=== PATIENT | female | born 1960 | race Hispanic/Latino ===

== ENCOUNTER 2020-08-12 13:08 | Inpatient (IN) | payer OTHER ==
[~2020-08-12] VITALS: Ht 154.9 cm; Wt 115.8 kg
[2020-08-12] MEDS ORDERED: ETOMIDATE 2 MG/ML 10 ML INJ IV ONE (13:11)
[2020-08-12] MEDS ORDERED: VECURONIUM BROMIDE FOR INJ 20 MG VIAL ONE (13:11)
[2020-08-12] MEDS ORDERED: WATER STERILE 10 ML VIAL ONE (13:11)
[2020-08-12] MEDS ORDERED: SUCCINYLCHOLINE CHLORIDE 20 MG/ML 10ML VIAL ONE (13:11)
[2020-08-12] MEDS ORDERED: LISINOPRIL10 MG PO (13:47)
[2020-08-12] MEDS ORDERED: METFORMIN HCL500 M2 PO (13:47)
[2020-08-12] MEDS ORDERED: LEVOTHYROXINE75 MCG PO (13:47)
[2020-08-12] MEDS ORDERED: SODIUM CHLORIDE FLUSH 10 ML SYR INJ PRN (15:45)
[2020-08-12] MEDS ORDERED: ONDANSETRON HCL INJ 2MG/ML 2ML 2 MG/ML VIAL IV PRN (15:45)
[2020-08-12] MEDS ORDERED: CEFTRIAXONE SOD 1 GM VIAL IV ONE (15:45)
[2020-08-12] MEDS ORDERED: CEFTRIAXONE SOD 1 GM 50 ML IV ONE (16:17)
[2020-08-12] MEDS ORDERED: SODIUM CHLORIDE 0.9% 1000ML 1,000 ML ONE (16:18)
[2020-08-12] MEDS: SODIUM CHLORIDE 0.9% 1000ML 1,000 ML IV SCH (16:20)
[2020-08-12] MEDS ORDERED: IBUPROFEN 600 MG TAB PO NR (16:30)
[2020-08-12] MEDS: DEXAMETHASONE 4 MG TAB PO SCH (21:41)
[2020-08-12] MEDS: AZITHROMYCIN 500MG/NS 250 ML 250 ML IV SCH (21:41)
[2020-08-12] MEDS ORDERED: DEXAMETHASONE SOD PHOS INJ 4 MG/ML VIAL ONE (21:41)
[2020-08-12 22:40] VITALS: BP 102/76
[2020-08-12 23:13] VITALS: BP 102/76
[2020-08-12] MEDS ORDERED: VITAMIN B-121000 MCG PO (23:27)
[2020-08-12] MEDS ORDERED: VITAMIN C500 MG PO (23:27)
[2020-08-12] MEDS ORDERED: ATORVASTATIN CA10 MG PO (23:27)
[2020-08-12] MEDS ORDERED: VITAMIN D3250 MCG PO (23:27)
[2020-08-12] MEDS ORDERED: DEXTROSE 50% SYRINGE 50 ML IV PRN (23:30)
[2020-08-12] MEDS: INSULIN LISPRO 100 UNIT/1 ML 3ML VIAL SQ SCH (23:50)
[2020-08-12 23:52] VITALS: BP 136/86
[2020-08-13] VITALS (7 sets, daily range): BP systolic 115–138; BP diastolic 71–83
[2020-08-13] MEDS: SODIUM CHLORIDE 0.9% 1000ML 1,000 ML IV SCH (00:35)
[2020-08-13 07:09] LABS: HEMATOCRIT 40.3 % (34.2-44.1); HEMOGLOBIN 13.2 g/dL (12.0-16.0); LYMPHOCYTES # (AUTO) 0.4 (1.0-3.2); MEAN CORPUSCULAR HEMOGLOBIN 29.2 pg (28-32); MEAN CORPUSCULAR HGB CONC 32.8 g/dL (31-35); MEAN CORPUSCULAR VOLUME 89.2 fL (81-99); MONOCYTES # (AUTO) 0.1 (0.2-0.8); MONOCYTES % 4.3 % (4.4-11.3); NEUTROPHILS % 80.3 % (38.7-80.0); PLATELET COUNT 99 x10e3/uL (140-360); RED BLOOD COUNT 4.52 x10e6/uL (3.6-5.1); RED CELL DISTRIBUTION WIDTH 13.6 % (11.7-14.4)
[2020-08-13 07:36] LABS: ALANINE AMINOTRANSFERASE 62 IU/L (0-55); ALBUMIN 3.1 g/dL (3.5-5.0); ALKALINE PHOSPHATASE 91 IU/L (40-150); ANION GAP 15.7 mmol/L (8-16); BLOOD UREA NITROGEN 9 mg/dL (7-26); BUN/CREATININE RATIO 13 (6-25); CALCIUM 8.3 mg/dL (8.4-10.2); CARBON DIOXIDE 24 mmol/L (22-29); CHLORIDE 100 mmol/L (98-107); EST GLOMERULAR FILTRATION RATE > 60 ML/MIN (60-); GLUCOSE 390 mg/dL (74-118); POTASSIUM 3.7 mmol/L (3.5-5.1); SODIUM 136 mmol/L (136-145)
[2020-08-13 07:52] LABS: PLATELET ESTIMATE MODERATELY DECREASED
[2020-08-13 07:54] LABS: PLATELET MORPHOLOGY COMMENT NORMAL
[2020-08-13] MEDS: INSULIN LISPRO 100 UNIT/1 ML 3ML VIAL SQ SCH ×4 (08:30→21:53)
[2020-08-13] MEDS: LISINOPRIL 20 MG TAB PO SCH (09:14)
[2020-08-13] MEDS: DEXAMETHASONE 4 MG TAB PO SCH (09:14)
[2020-08-13] MEDS: METFORMIN HCL 500 MG TAB CR PO SCH ×2 (09:14→17:24)
[2020-08-13] MEDS: LEVOTHYROXINE SODIUM 75 MCG TAB PO SCH (09:15)
[2020-08-13] MEDS ORDERED: DEXTROSE 50% SYRINGE 50 ML IV PRN (15:00)
[2020-08-13] MEDS ORDERED: REMDESIVIR 200MG/NS 100ML 200 MG in SODIUM CHLORIDE 0.9% 100 ML 100 ML IV ONE (16:00)
[2020-08-13] MEDS ORDERED: ENOXAPARIN SOD INJ 40 MG/0.4 ML SYR SC SCH (17:00)
[2020-08-13] MEDS: FLUTICASONE PROPIONATE NASAL SPRAY NS SCH (17:23)
[2020-08-13] MEDS: ENOXAPARIN SOD INJ 40 MG/0.4 ML SYR SC SCH (17:24)
[2020-08-13] MEDS ORDERED: CEFTRIAXONE SOD 1 GM 50 ML IV SCH ×2 (18:00→20:00)
[2020-08-13] MEDS: GUAIFENESIN/CODEINE 10 ML CUP PO PRN (18:34)
[2020-08-13] MEDS: ACETAMINOPHEN 325 MG TAB PO PRN (21:51)
[2020-08-13] MEDS: AZITHROMYCIN 500MG/NS 250 ML 250 ML IV SCH (22:15)
[2020-08-14] VITALS (8 sets, daily range): BP systolic 119–156; BP diastolic 72–82
[2020-08-14] MEDS: ONDANSETRON HCL INJ 2MG/ML 2ML 2 MG/ML VIAL IV PRN ×3 (00:16→20:30)
[2020-08-14] MEDS: GUAIFENESIN/CODEINE 10 ML CUP PO PRN ×3 (03:15→21:53)
[2020-08-14] MEDS: ACETAMINOPHEN 325 MG TAB PO PRN ×3 (03:51→16:57)
[2020-08-14 06:04] LABS: EOSINOPHILS % 0.2 % (0.0-6.0); HEMATOCRIT 38.3 % (34.2-44.1); HEMOGLOBIN 13.1 g/dL (12.0-16.0); LYMPHOCYTES # (AUTO) 0.8 (1.0-3.2); MEAN CORPUSCULAR HEMOGLOBIN 29.4 pg (28-32); MEAN CORPUSCULAR HGB CONC 34.2 g/dL (31-35); MEAN CORPUSCULAR VOLUME 86.1 fL (81-99); MONOCYTES # (AUTO) 0.2 (0.2-0.8); MONOCYTES % 2.9 % (4.4-11.3); NEUTROPHILS # (AUTO) 4.5 (2.1-6.9); NEUTROPHILS % 81.5 % (38.7-80.0); PLATELET COUNT 120 x10e3/uL (140-360); RED BLOOD COUNT 4.45 x10e6/uL (3.6-5.1); RED CELL DISTRIBUTION WIDTH 13.3 % (11.7-14.4)
[2020-08-14 06:33] LABS: ALANINE AMINOTRANSFERASE 49 IU/L (0-55); ALBUMIN/GLOBULIN RATIO 0.9 (0.8-2.0); ALKALINE PHOSPHATASE 88 IU/L (40-150); ANION GAP 15.4 mmol/L (8-16); BLOOD UREA NITROGEN 11 mg/dL (7-26); BUN/CREATININE RATIO 17 (6-25); CALCIUM 8.5 mg/dL (8.4-10.2); CARBON DIOXIDE 23 mmol/L (22-29); CHLORIDE 103 mmol/L (98-107); CREATININE, SERUM 0.65 mg/dL (0.57-1.11); EST GLOMERULAR FILTRATION RATE > 60 ML/MIN (60-); GLUCOSE 180 mg/dL (74-118); POTASSIUM 3.4 mmol/L (3.5-5.1); SODIUM 138 mmol/L (136-145)
[2020-08-14] MEDS: LEVOTHYROXINE SODIUM 75 MCG TAB PO SCH (06:38)
[2020-08-14 06:45] LABS: THYROID STIMULATING HORMONE 0.208 uIU/mL (0.350-4.940)
[2020-08-14] MEDS: INSULIN LISPRO 100 UNIT/1 ML 3ML VIAL SQ SCH ×4 (08:30→21:04)
[2020-08-14] MEDS: GUAIFENESIN 600MG/DEXTROMETHORPHAN 30MG TABSR PO PRN ×2 (08:37→16:57)
[2020-08-14] MEDS: METFORMIN HCL 500 MG TAB CR PO SCH ×2 (08:37→16:56)
[2020-08-14] MEDS: LISINOPRIL 20 MG TAB PO SCH (08:37)
[2020-08-14] MEDS: FLUTICASONE PROPIONATE NASAL SPRAY NS SCH ×2 (08:37→16:56)
[2020-08-14] MEDS: DEXAMETHASONE 4 MG TAB PO SCH (08:37)
[2020-08-14] MEDS: REMDESIVIR 100MG/NS 100ML 100 MG IV SCH (13:00)
[2020-08-14] MEDS ORDERED: POTASSIUM CHLORIDE 10MEQ EA PO ONE (14:00)
[2020-08-14] MEDS ORDERED: IBUPROFEN 100 MG/5 ML SUSP PO PRN (14:15)
[2020-08-14] MEDS: IBUPROFEN 600 MG TAB PO PRN (15:05)
[2020-08-14] MEDS: ENOXAPARIN SOD INJ 40 MG/0.4 ML SYR SC SCH (16:56)
[2020-08-14] MEDS: HYDROCODONE/APAP 5MG-325MG TAB PO PRN (21:53)
[2020-08-15] VITALS (7 sets, daily range): BP systolic 105–152; BP diastolic 72–85
[2020-08-15] MEDS: LEVOTHYROXINE SODIUM 50 MCG TAB PO SCH (06:10)
[2020-08-15] MEDS: ACETAMINOPHEN 325 MG TAB PO PRN ×2 (06:11→21:57)
[2020-08-15 06:22] LABS: HEMATOCRIT 38.1 % (34.2-44.1); HEMOGLOBIN 12.8 g/dL (12.0-16.0); LYMPHOCYTES # (AUTO) 0.6 (1.0-3.2); LYMPHOCYTES % 12.9 % (18.0-39.1); MEAN CORPUSCULAR HEMOGLOBIN 29.3 pg (28-32); MEAN CORPUSCULAR HGB CONC 33.6 g/dL (31-35); MEAN CORPUSCULAR VOLUME 87.2 fL (81-99); MONOCYTES # (AUTO) 0.3 (0.2-0.8); MONOCYTES % 5.2 % (4.4-11.3); NEUTROPHILS # (AUTO) 4.1 (2.1-6.9); NEUTROPHILS % 81.5 % (38.7-80.0); PLATELET COUNT 142 x10e3/uL (140-360); RED BLOOD COUNT 4.37 x10e6/uL (3.6-5.1); RED CELL DISTRIBUTION WIDTH 13.6 % (11.7-14.4)
[2020-08-15 06:52] LABS: ALANINE AMINOTRANSFERASE 49 IU/L (0-55); ALBUMIN 2.9 g/dL (3.5-5.0); ALBUMIN/GLOBULIN RATIO 0.9 (0.8-2.0); ALKALINE PHOSPHATASE 82 IU/L (40-150); ANION GAP 12.5 mmol/L (8-16); BLOOD UREA NITROGEN 12 mg/dL (7-26); BUN/CREATININE RATIO 18 (6-25); CALCIUM 8.2 mg/dL (8.4-10.2); CARBON DIOXIDE 27 mmol/L (22-29); CHLORIDE 100 mmol/L (98-107); CREATININE, SERUM 0.68 mg/dL (0.57-1.11); EST GLOMERULAR FILTRATION RATE > 60 ML/MIN (60-); GLUCOSE 189 mg/dL (74-118); POTASSIUM 3.5 mmol/L (3.5-5.1); SODIUM 136 mmol/L (136-145)
[2020-08-15] MEDS: INSULIN LISPRO 100 UNIT/1 ML 3ML VIAL SQ SCH ×4 (07:30→21:57)
[2020-08-15] MEDS: DEXAMETHASONE 4 MG TAB PO SCH (09:30)
[2020-08-15] MEDS: METFORMIN HCL 500 MG TAB CR PO SCH ×2 (09:30→17:57)
[2020-08-15] MEDS: LISINOPRIL 20 MG TAB PO SCH (09:30)
[2020-08-15] MEDS: FLUTICASONE PROPIONATE NASAL SPRAY NS SCH ×2 (09:30→17:39)
[2020-08-15] MEDS: IBUPROFEN 600 MG TAB PO PRN ×2 (09:36→19:38)
[2020-08-15] MEDS: REMDESIVIR 100MG/NS 100ML 100 MG IV SCH (13:11)
[2020-08-15] MEDS: ENOXAPARIN SOD INJ 40 MG/0.4 ML SYR SC SCH (17:57)
[2020-08-15] MEDS: GUAIFENESIN 600MG/DEXTROMETHORPHAN 30MG TABSR PO PRN (19:20)
[2020-08-15] MEDS: ALBUTEROL SULFATE HFA 8GM INHALATION AEROSOL INH PRN (21:57)
[2020-08-16] VITALS (8 sets, daily range): BP systolic 134–170; BP diastolic 78–94
[2020-08-16] MEDS: ONDANSETRON HCL INJ 2MG/ML 2ML 2 MG/ML VIAL IV PRN (00:10)
[2020-08-16] MEDS: HYDROCODONE/APAP 5MG-325MG TAB PO PRN ×2 (00:28→17:00)
[2020-08-16] MEDS: LEVOTHYROXINE SODIUM 50 MCG TAB PO SCH (06:33)
[2020-08-16] MEDS: INSULIN LISPRO 100 UNIT/1 ML 3ML VIAL SQ SCH ×4 (07:30→20:52)
[2020-08-16] MEDS: FLUTICASONE PROPIONATE NASAL SPRAY NS SCH ×2 (09:11→17:31)
[2020-08-16] MEDS: METFORMIN HCL 500 MG TAB CR PO SCH ×2 (09:11→17:31)
[2020-08-16] MEDS: DEXAMETHASONE 4 MG TAB PO SCH (09:11)
[2020-08-16] MEDS: LISINOPRIL 20 MG TAB PO SCH (09:11)
[2020-08-16] MEDS: IBUPROFEN 600 MG TAB PO PRN (09:26)
[2020-08-16] MEDS: GUAIFENESIN/CODEINE 10 ML CUP PO PRN ×2 (09:32→09:33)
[2020-08-16] MEDS: REMDESIVIR 100MG/NS 100ML 100 MG IV SCH (14:14)
[2020-08-16] MEDS: ENOXAPARIN SOD INJ 40 MG/0.4 ML SYR SC SCH (17:31)
[2020-08-16] MEDS: ACETAMINOPHEN 325 MG TAB PO PRN (20:53)
[2020-08-17] VITALS (7 sets, daily range): BP systolic 143–174; BP diastolic 73–102
[2020-08-17] MEDS: LORAZEPAM INJ 2 MG/ML VIAL IV PRN (01:39)
[2020-08-17] MEDS: LEVOTHYROXINE SODIUM 50 MCG TAB PO SCH (04:58)
[2020-08-17] MEDS: ACETAMINOPHEN 325 MG TAB PO PRN (04:59)
[2020-08-17 05:28] LABS: BASOPHILS % 0.2 % (0.0-1.0); EOSINOPHILS % 0.2 % (0.0-6.0); HEMOGLOBIN 13.7 g/dL (12.0-16.0); LYMPHOCYTES # (AUTO) 0.9 (1.0-3.2); LYMPHOCYTES % 16.1 % (18.0-39.1); MEAN CORPUSCULAR HEMOGLOBIN 29.5 pg (28-32); MEAN CORPUSCULAR HGB CONC 33.4 g/dL (31-35); MEAN CORPUSCULAR VOLUME 88.2 fL (81-99); MONOCYTES # (AUTO) 0.2 (0.2-0.8); MONOCYTES % 4.4 % (4.4-11.3); NEUTROPHILS # (AUTO) 4.2 (2.1-6.9); NEUTROPHILS % 77.8 % (38.7-80.0); PLATELET COUNT 194 x10e3/uL (140-360); RED BLOOD COUNT 4.65 x10e6/uL (3.6-5.1); RED CELL DISTRIBUTION WIDTH 13.2 % (11.7-14.4)
[2020-08-17 05:47] LABS: ANION GAP 15.6 mmol/L (8-16); BLOOD UREA NITROGEN 11 mg/dL (7-26); BUN/CREATININE RATIO 18 (6-25); CALCIUM 8.2 mg/dL (8.4-10.2); CARBON DIOXIDE 26 mmol/L (22-29); CHLORIDE 99 mmol/L (98-107); CREATININE, SERUM 0.61 mg/dL (0.57-1.11); EST GLOMERULAR FILTRATION RATE > 60 ML/MIN (60-); GLUCOSE 150 mg/dL (74-118); POTASSIUM 3.6 mmol/L (3.5-5.1); SODIUM 137 mmol/L (136-145)
[2020-08-17] MEDS: INSULIN LISPRO 100 UNIT/1 ML 3ML VIAL SQ SCH ×4 (07:30→21:54)
[2020-08-17] MEDS: METFORMIN HCL 500 MG TAB CR PO SCH ×2 (08:00→17:28)
[2020-08-17] MEDS: LISINOPRIL 20 MG TAB PO SCH (08:59)
[2020-08-17] MEDS: FLUTICASONE PROPIONATE NASAL SPRAY NS SCH ×2 (08:59→17:28)
[2020-08-17] MEDS: DEXAMETHASONE 4 MG TAB PO SCH (08:59)
[2020-08-17] MEDS: HYDROCODONE/APAP 5MG-325MG TAB PO PRN ×3 (10:01→20:15)
[2020-08-17] MEDS: REMDESIVIR 100MG/NS 100ML 100 MG IV SCH (14:40)
[2020-08-17] MEDS: ENOXAPARIN SOD INJ 40 MG/0.4 ML SYR SC SCH (17:28)
[2020-08-17] MEDS: GUAIFENESIN/CODEINE 10 ML CUP PO PRN (20:03)
[2020-08-18] VITALS (7 sets, daily range): BP systolic 119–174; BP diastolic 64–94
[2020-08-18] MEDS: LORAZEPAM INJ 2 MG/ML VIAL IV PRN ×2 (01:37→23:48)
[2020-08-18] MEDS: GUAIFENESIN/CODEINE 10 ML CUP PO PRN ×2 (04:56→20:00)
[2020-08-18] MEDS: HYDROCODONE/APAP 5MG-325MG TAB PO PRN ×3 (04:56→20:00)
[2020-08-18] MEDS: LEVOTHYROXINE SODIUM 50 MCG TAB PO SCH (05:14)
[2020-08-18] MEDS: INSULIN LISPRO 100 UNIT/1 ML 3ML VIAL SQ SCH ×4 (07:30→21:00)
[2020-08-18] MEDS: DEXAMETHASONE 4 MG TAB PO SCH (09:15)
[2020-08-18] MEDS: LISINOPRIL 20 MG TAB PO SCH (09:15)
[2020-08-18] MEDS: METFORMIN HCL 500 MG TAB CR PO SCH ×2 (09:15→16:17)
[2020-08-18] MEDS: FLUTICASONE PROPIONATE NASAL SPRAY NS SCH ×2 (09:15→16:17)
[2020-08-18] MEDS: GUAIFENESIN 600MG/DEXTROMETHORPHAN 30MG TABSR PO PRN (09:16)
[2020-08-18] MEDS: ACETAMINOPHEN 325 MG TAB PO PRN (11:21)
[2020-08-18] MEDS: ENOXAPARIN SOD INJ 40 MG/0.4 ML SYR SC SCH (16:18)
[2020-08-19] VITALS (7 sets, daily range): BP systolic 137–154; BP diastolic 70–90
[2020-08-19] MEDS: GUAIFENESIN/CODEINE 10 ML CUP PO PRN ×2 (02:09→20:00)
[2020-08-19] MEDS: HYDROCODONE/APAP 5MG-325MG TAB PO PRN ×3 (02:10→20:00)
[2020-08-19] MEDS: LEVOTHYROXINE SODIUM 50 MCG TAB PO SCH (05:28)
[2020-08-19] MEDS: INSULIN LISPRO 100 UNIT/1 ML 3ML VIAL SQ SCH ×4 (08:10→21:00)
[2020-08-19] MEDS: FLUTICASONE PROPIONATE NASAL SPRAY NS SCH ×2 (09:17→16:49)
[2020-08-19] MEDS: LISINOPRIL 20 MG TAB PO SCH (09:17)
[2020-08-19] MEDS: DEXAMETHASONE 4 MG TAB PO SCH (09:17)
[2020-08-19] MEDS: METFORMIN HCL 500 MG TAB CR PO SCH ×2 (09:17→16:49)
[2020-08-19] MEDS: ACETAMINOPHEN 325 MG TAB PO PRN (09:18)
[2020-08-19] MEDS: ENOXAPARIN SOD INJ 40 MG/0.4 ML SYR SC SCH (16:49)
[2020-08-20] VITALS (8 sets, daily range): BP systolic 127–180; BP diastolic 70–97
[2020-08-20] MEDS: GUAIFENESIN/CODEINE 10 ML CUP PO PRN (01:10)
[2020-08-20] MEDS: HYDROCODONE/APAP 5MG-325MG TAB PO PRN ×4 (01:10→20:12)
[2020-08-20] MEDS: LEVOTHYROXINE SODIUM 50 MCG TAB PO SCH (06:27)
[2020-08-20] MEDS: INSULIN LISPRO 100 UNIT/1 ML 3ML VIAL SQ SCH ×4 (09:17→20:55)
[2020-08-20] MEDS: LISINOPRIL 20 MG TAB PO SCH (09:19)
[2020-08-20] MEDS: DEXAMETHASONE 4 MG TAB PO SCH (09:19)
[2020-08-20] MEDS: METFORMIN HCL 500 MG TAB CR PO SCH ×2 (09:19→16:33)
[2020-08-20] MEDS: FLUTICASONE PROPIONATE NASAL SPRAY NS SCH ×2 (09:31→16:33)
[2020-08-20] MEDS: HYDRALAZINE HCL 20 MG/ML VIAL IV PRN (20:28)
[2020-08-20] MEDS: IBUPROFEN 600 MG TAB PO PRN (22:36)
[2020-08-21] VITALS (9 sets, daily range): BP systolic 120–158; BP diastolic 49–118
[2020-08-21] MEDS: HYDROCODONE/APAP 5MG-325MG TAB PO PRN ×3 (00:06→12:56)
[2020-08-21 05:02] LABS: BASOPHILS % 0.1 % (0.0-1.0); EOSINOPHILS # (AUTO) 0.1 (0.0-0.4); EOSINOPHILS % 0.7 % (0.0-6.0); HEMATOCRIT 38.7 % (34.2-44.1); LYMPHOCYTES % 11.1 % (18.0-39.1); MEAN CORPUSCULAR HGB CONC 33.6 g/dL (31-35); MEAN CORPUSCULAR VOLUME 86.2 fL (81-99); MONOCYTES # (AUTO) 0.3 (0.2-0.8); MONOCYTES % 3.8 % (4.4-11.3); NEUTROPHILS # (AUTO) 7.2 (2.1-6.9); PLATELET COUNT 262 x10e3/uL (140-360); RED BLOOD COUNT 4.49 x10e6/uL (3.6-5.1); RED CELL DISTRIBUTION WIDTH 13.7 % (11.7-14.4)
[2020-08-21] MEDS: LEVOTHYROXINE SODIUM 50 MCG TAB PO SCH (05:20)
[2020-08-21] MEDS: GUAIFENESIN 600MG/DEXTROMETHORPHAN 30MG TABSR PO PRN ×2 (05:25→12:00)
[2020-08-21 05:26] LABS: ALANINE AMINOTRANSFERASE 37 IU/L (0-55); ALBUMIN 2.6 g/dL (3.5-5.0); ALBUMIN/GLOBULIN RATIO 0.7 (0.8-2.0); ALKALINE PHOSPHATASE 78 IU/L (40-150); ANION GAP 17.5 mmol/L (8-16); BLOOD UREA NITROGEN 9 mg/dL (7-26); BUN/CREATININE RATIO 15 (6-25); CALCIUM 8.3 mg/dL (8.4-10.2); CARBON DIOXIDE 24 mmol/L (22-29); CHLORIDE 99 mmol/L (98-107); EST GLOMERULAR FILTRATION RATE > 60 ML/MIN (60-); GLUCOSE 129 mg/dL (74-118); POTASSIUM 3.5 mmol/L (3.5-5.1); SODIUM 137 mmol/L (136-145)
[2020-08-21] MEDS: SALINE 0.65% NAS SOLN 1 SPRAY BTL PRN (06:30)
[2020-08-21] MEDS: METFORMIN HCL 500 MG TAB CR PO SCH ×2 (08:34→15:59)
[2020-08-21] MEDS: LISINOPRIL 20 MG TAB PO SCH (08:34)
[2020-08-21] MEDS: FLUTICASONE PROPIONATE NASAL SPRAY NS SCH ×2 (08:34→15:59)
[2020-08-21] MEDS: HYDRALAZINE HCL 20 MG/ML VIAL IV PRN (08:35)
[2020-08-21] MEDS: INSULIN LISPRO 100 UNIT/1 ML 3ML VIAL SQ SCH ×4 (08:43→20:46)
[2020-08-21] MEDS: OXYMETAZOLINE HCL 0.05% NAS 1 SPRAY BTL SCH ×2 (11:47→20:28)
[2020-08-21] MEDS: DEXAMETHASONE 4 MG TAB PO SCH (11:47)
[2020-08-21] MEDS: ENOXAPARIN SOD INJ 40 MG/0.4 ML SYR SC SCH (15:59)
[2020-08-21] MEDS: ACETAMINOPHEN 325 MG TAB PO PRN (20:48)
[2020-08-22] MEDS: IBUPROFEN 600 MG TAB PO PRN ×2 (01:01→20:12)
[2020-08-22] MEDS: GUAIFENESIN 600MG/DEXTROMETHORPHAN 30MG TABSR PO PRN ×2 (01:01→20:12)
[2020-08-22] MEDS: LORAZEPAM INJ 2 MG/ML VIAL IV PRN (04:16)
[2020-08-22] MEDS: LEVOTHYROXINE SODIUM 50 MCG TAB PO SCH (05:01)
[2020-08-22 05:28] VITALS: BP 154/77
[2020-08-22 07:48] VITALS: BP 154/77
[2020-08-22 08:00] VITALS: BP 143/65
[2020-08-22] MEDS: METFORMIN HCL 500 MG TAB CR PO SCH ×2 (08:59→18:03)
[2020-08-22] MEDS: DEXAMETHASONE 4 MG TAB PO SCH (09:00)
[2020-08-22] MEDS: OXYMETAZOLINE HCL 0.05% NAS 1 SPRAY BTL SCH ×2 (09:00→21:00)
[2020-08-22] MEDS: INSULIN LISPRO 100 UNIT/1 ML 3ML VIAL SQ SCH ×4 (09:00→21:00)
[2020-08-22] MEDS: LISINOPRIL 20 MG TAB PO SCH (09:01)
[2020-08-22] MEDS: FLUTICASONE PROPIONATE NASAL SPRAY NS SCH ×2 (09:01→18:03)
[2020-08-22 12:00] VITALS: BP 180/88
[2020-08-22 16:00] VITALS: BP 172/112
[2020-08-22] MEDS: ENOXAPARIN SOD INJ 40 MG/0.4 ML SYR SC SCH (18:03)
[2020-08-22] MEDS: HYDRALAZINE HCL 20 MG/ML VIAL IV PRN (18:04)
[2020-08-22 20:48] VITALS: BP 148/83
[2020-08-23] VITALS (8 sets, daily range): BP systolic 103–161; BP diastolic 70–97
[2020-08-23] MEDS: ACETAMINOPHEN 325 MG TAB PO PRN ×3 (00:16→20:00)
[2020-08-23] MEDS: LEVOTHYROXINE SODIUM 50 MCG TAB PO SCH (05:19)
[2020-08-23] MEDS: INSULIN LISPRO 100 UNIT/1 ML 3ML VIAL SQ SCH ×4 (07:30→20:27)
[2020-08-23] MEDS: OXYMETAZOLINE HCL 0.05% NAS 1 SPRAY BTL SCH ×2 (09:20→20:27)
[2020-08-23] MEDS: LISINOPRIL 20 MG TAB PO SCH (09:20)
[2020-08-23] MEDS: FLUTICASONE PROPIONATE NASAL SPRAY NS SCH ×2 (09:20→17:06)
[2020-08-23] MEDS: METFORMIN HCL 500 MG TAB CR PO SCH ×2 (09:20→17:06)
[2020-08-23] MEDS: IBUPROFEN 600 MG TAB PO PRN (13:08)
[2020-08-23] MEDS: ENOXAPARIN SOD INJ 40 MG/0.4 ML SYR SC SCH (17:07)
[2020-08-24] VITALS (8 sets, daily range): BP systolic 104–132; BP diastolic 62–84
[2020-08-24] MEDS: LORAZEPAM INJ 2 MG/ML VIAL IV PRN (01:20)
[2020-08-24] MEDS: LEVOTHYROXINE SODIUM 50 MCG TAB PO SCH (05:34)
[2020-08-24 06:08] LABS: BASOPHILS % 0.3 % (0.0-1.0); EOSINOPHILS # (AUTO) 0.1 (0.0-0.4); EOSINOPHILS % 1.7 % (0.0-6.0); HEMATOCRIT 41.2 % (34.2-44.1); HEMOGLOBIN 13.2 g/dL (12.0-16.0); LYMPHOCYTES % 14.1 % (18.0-39.1); MEAN CORPUSCULAR HEMOGLOBIN 29.3 pg (28-32); MEAN CORPUSCULAR VOLUME 91.4 fL (81-99); MONOCYTES # (AUTO) 0.4 (0.2-0.8); MONOCYTES % 5.2 % (4.4-11.3); NEUTROPHILS # (AUTO) 5.4 (2.1-6.9); NEUTROPHILS % 77.7 % (38.7-80.0); PLATELET COUNT 262 x10e3/uL (140-360); RED BLOOD COUNT 4.51 x10e6/uL (3.6-5.1); RED CELL DISTRIBUTION WIDTH 14.1 % (11.7-14.4)
[2020-08-24 07:16] LABS: ALANINE AMINOTRANSFERASE 59 IU/L (0-55); ALBUMIN 2.5 g/dL (3.5-5.0); ALBUMIN/GLOBULIN RATIO 0.7 (0.8-2.0); ALKALINE PHOSPHATASE 92 IU/L (40-150); ANION GAP 16.2 mmol/L (8-16); BLOOD UREA NITROGEN 9 mg/dL (7-26); BUN/CREATININE RATIO 13 (6-25); CALCIUM 8.2 mg/dL (8.4-10.2); CARBON DIOXIDE 26 mmol/L (22-29); CHLORIDE 101 mmol/L (98-107); CREATININE, SERUM 0.69 mg/dL (0.57-1.11); EST GLOMERULAR FILTRATION RATE > 60 ML/MIN (60-); GLUCOSE 114 mg/dL (74-118); POTASSIUM 4.2 mmol/L (3.5-5.1); SODIUM 139 mmol/L (136-145)
[2020-08-24] MEDS: INSULIN LISPRO 100 UNIT/1 ML 3ML VIAL SQ SCH ×4 (07:30→21:00)
[2020-08-24] MEDS: FLUTICASONE PROPIONATE NASAL SPRAY NS SCH ×2 (08:43→16:22)
[2020-08-24] MEDS: METFORMIN HCL 500 MG TAB CR PO SCH ×2 (08:43→16:22)
[2020-08-24] MEDS: OXYMETAZOLINE HCL 0.05% NAS 1 SPRAY BTL SCH (08:43)
[2020-08-24] MEDS: LISINOPRIL 20 MG TAB PO SCH (08:44)
[2020-08-24] MEDS: ENOXAPARIN SOD INJ 40 MG/0.4 ML SYR SC SCH (16:22)
[2020-08-24] MEDS: GUAIFENESIN 600MG/DEXTROMETHORPHAN 30MG TABSR PO PRN (21:05)
[2020-08-25] VITALS (7 sets, daily range): BP systolic 104–124; BP diastolic 60–83
[2020-08-25] MEDS: IBUPROFEN 600 MG TAB PO PRN ×2 (01:40→10:52)
[2020-08-25] MEDS: LEVOTHYROXINE SODIUM 50 MCG TAB PO SCH (06:08)
[2020-08-25] MEDS: INSULIN LISPRO 100 UNIT/1 ML 3ML VIAL SQ SCH ×4 (07:30→20:18)
[2020-08-25] MEDS: ACETAMINOPHEN 325 MG TAB PO PRN (08:24)
[2020-08-25] MEDS: FLUTICASONE PROPIONATE NASAL SPRAY NS SCH ×2 (08:24→16:52)
[2020-08-25] MEDS: METFORMIN HCL 500 MG TAB CR PO SCH ×2 (08:24→16:52)
[2020-08-25] MEDS: LISINOPRIL 20 MG TAB PO SCH (09:58)
[2020-08-25] MEDS: ENOXAPARIN SOD INJ 40 MG/0.4 ML SYR SC SCH (16:52)
[2020-08-25] MEDS: LORAZEPAM 0.5 MG TAB PO PRN (23:20)
[2020-08-26] VITALS (8 sets, daily range): BP systolic 123–144; BP diastolic 62–85
[2020-08-26] MEDS: IBUPROFEN 600 MG TAB PO PRN ×2 (00:28→23:17)
[2020-08-26 05:57] LABS: BASOPHILS % 0.2 % (0.0-1.0); EOSINOPHILS # (AUTO) 0.1 (0.0-0.4); EOSINOPHILS % 1.3 % (0.0-6.0); HEMOGLOBIN 12.2 g/dL (12.0-16.0); LYMPHOCYTES # (AUTO) 0.7 (1.0-3.2); LYMPHOCYTES % 11.2 % (18.0-39.1); MEAN CORPUSCULAR HEMOGLOBIN 28.7 pg (28-32); MEAN CORPUSCULAR HGB CONC 32.1 g/dL (31-35); MEAN CORPUSCULAR VOLUME 89.4 fL (81-99); MONOCYTES # (AUTO) 0.4 (0.2-0.8); MONOCYTES % 6.9 % (4.4-11.3); NEUTROPHILS # (AUTO) 4.9 (2.1-6.9); NEUTROPHILS % 80.1 % (38.7-80.0); PLATELET COUNT 196 x10e3/uL (140-360); RED BLOOD COUNT 4.25 x10e6/uL (3.6-5.1)
[2020-08-26] MEDS: LEVOTHYROXINE SODIUM 50 MCG TAB PO SCH (06:09)
[2020-08-26 06:55] LABS: ALANINE AMINOTRANSFERASE 52 IU/L (0-55); ALBUMIN 2.3 g/dL (3.5-5.0); ALBUMIN/GLOBULIN RATIO 0.7 (0.8-2.0); ALKALINE PHOSPHATASE 97 IU/L (40-150); ANION GAP 13.7 mmol/L (8-16); BLOOD UREA NITROGEN 9 mg/dL (7-26); BUN/CREATININE RATIO 13 (6-25); CALCIUM 8.2 mg/dL (8.4-10.2); CARBON DIOXIDE 26 mmol/L (22-29); CHLORIDE 102 mmol/L (98-107); EST GLOMERULAR FILTRATION RATE > 60 ML/MIN (60-); GLUCOSE 124 mg/dL (74-118); POTASSIUM 3.7 mmol/L (3.5-5.1); SODIUM 138 mmol/L (136-145)
[2020-08-26] MEDS: INSULIN LISPRO 100 UNIT/1 ML 3ML VIAL SQ SCH ×4 (08:30→20:40)
[2020-08-26] MEDS: METFORMIN HCL 500 MG TAB CR PO SCH ×2 (08:57→16:10)
[2020-08-26] MEDS: LISINOPRIL 20 MG TAB PO SCH (08:57)
[2020-08-26] MEDS: FLUTICASONE PROPIONATE NASAL SPRAY NS SCH ×2 (08:57→16:10)
[2020-08-26] MEDS: ACETAMINOPHEN 325 MG TAB PO PRN (09:44)
[2020-08-26] MEDS: ENOXAPARIN SOD INJ 40 MG/0.4 ML SYR SC SCH (16:10)
[2020-08-26] MEDS: LORAZEPAM 0.5 MG TAB PO PRN (18:10)
[2020-08-27] VITALS (8 sets, daily range): BP systolic 106–150; BP diastolic 52–97
[2020-08-27 05:08] LABS: BASOPHILS % 0.2 % (0.0-1.0); EOSINOPHILS # (AUTO) 0.1 (0.0-0.4); EOSINOPHILS % 1.2 % (0.0-6.0); HEMATOCRIT 36.5 % (34.2-44.1); HEMOGLOBIN 11.8 g/dL (12.0-16.0); LYMPHOCYTES # (AUTO) 0.8 (1.0-3.2); LYMPHOCYTES % 13.2 % (18.0-39.1); MEAN CORPUSCULAR HEMOGLOBIN 29.4 pg (28-32); MEAN CORPUSCULAR HGB CONC 32.3 g/dL (31-35); MONOCYTES # (AUTO) 0.5 (0.2-0.8); MONOCYTES % 8.1 % (4.4-11.3); NEUTROPHILS # (AUTO) 4.4 (2.1-6.9); NEUTROPHILS % 76.8 % (38.7-80.0); PLATELET COUNT 198 x10e3/uL (140-360); RED BLOOD COUNT 4.01 x10e6/uL (3.6-5.1); RED CELL DISTRIBUTION WIDTH 13.8 % (11.7-14.4)
[2020-08-27 05:33] LABS: ALANINE AMINOTRANSFERASE 46 IU/L (0-55); ALBUMIN 2.4 g/dL (3.5-5.0); ALBUMIN/GLOBULIN RATIO 0.7 (0.8-2.0); ALKALINE PHOSPHATASE 94 IU/L (40-150); ANION GAP 12.5 mmol/L (8-16); BLOOD UREA NITROGEN 7 mg/dL (7-26); BUN/CREATININE RATIO 11 (6-25); CALCIUM 8.3 mg/dL (8.4-10.2); CARBON DIOXIDE 27 mmol/L (22-29); CHLORIDE 100 mmol/L (98-107); CREATININE, SERUM 0.66 mg/dL (0.57-1.11); EST GLOMERULAR FILTRATION RATE > 60 ML/MIN (60-); GLUCOSE 155 mg/dL (74-118); POTASSIUM 3.5 mmol/L (3.5-5.1); SODIUM 136 mmol/L (136-145)
[2020-08-27] MEDS: LEVOTHYROXINE SODIUM 50 MCG TAB PO SCH (06:03)
[2020-08-27] MEDS: INSULIN LISPRO 100 UNIT/1 ML 3ML VIAL SQ SCH ×4 (07:30→21:32)
[2020-08-27] MEDS: METFORMIN HCL 500 MG TAB CR PO SCH ×2 (09:05→16:04)
[2020-08-27] MEDS: FLUTICASONE PROPIONATE NASAL SPRAY NS SCH ×2 (09:05→16:04)
[2020-08-27] MEDS: ACETAMINOPHEN 325 MG TAB PO PRN ×2 (09:05→23:30)
[2020-08-27] MEDS: LISINOPRIL 20 MG TAB PO SCH (09:06)
[2020-08-27] MEDS: ENOXAPARIN SOD INJ 40 MG/0.4 ML SYR SC SCH (16:04)
[2020-08-27] MEDS ORDERED: FUROSEMIDE INJ 10 MG/ML 4 ML VIAL IV ONE (20:30)
[2020-08-28] VITALS (7 sets, daily range): BP systolic 110–124; BP diastolic 70–81
[2020-08-28] MEDS: LEVOTHYROXINE SODIUM 50 MCG TAB PO SCH (05:09)
[2020-08-28] MEDS: IBUPROFEN 600 MG TAB PO PRN ×2 (05:10→23:58)
[2020-08-28] MEDS: INSULIN LISPRO 100 UNIT/1 ML 3ML VIAL SQ SCH ×4 (07:30→20:18)
[2020-08-28] MEDS: FLUTICASONE PROPIONATE NASAL SPRAY NS SCH ×2 (08:05→16:20)
[2020-08-28] MEDS: LISINOPRIL 20 MG TAB PO SCH (08:05)
[2020-08-28] MEDS: METFORMIN HCL 500 MG TAB CR PO SCH ×2 (08:05→16:20)
[2020-08-28] MEDS: ENOXAPARIN SOD INJ 40 MG/0.4 ML SYR SC SCH (17:15)
[2020-08-28] MEDS ORDERED: IOPAMIDOL 370 MG/ML 200 ML INFUS..BTL INJ ONE (18:05)
[2020-08-28] MEDS ORDERED: SODIUM CHLORIDE 0.9% 50ML 50 ML ONE (18:05)
[2020-08-28] MEDS: ACETAMINOPHEN 325 MG TAB PO PRN (20:20)
[2020-08-28] MEDS: GUAIFENESIN 600MG/DEXTROMETHORPHAN 30MG TABSR PO PRN (23:58)
[2020-08-29] VITALS (7 sets, daily range): BP systolic 90–134; BP diastolic 50–91
[2020-08-29] MEDS: LEVOTHYROXINE SODIUM 50 MCG TAB PO SCH (05:11)
[2020-08-29] MEDS: INSULIN LISPRO 100 UNIT/1 ML 3ML VIAL SQ SCH ×4 (07:30→22:15)
[2020-08-29] MEDS: FLUTICASONE PROPIONATE NASAL SPRAY NS SCH ×2 (08:59→16:06)
[2020-08-29] MEDS: METFORMIN HCL 500 MG TAB CR PO SCH ×2 (08:59→17:08)
[2020-08-29] MEDS: LISINOPRIL 20 MG TAB PO SCH (09:00)
[2020-08-29] MEDS ORDERED: FUROSEMIDE INJ 10 MG/ML 4 ML VIAL IV ONE (10:30)
[2020-08-29] MEDS: SALINE 0.65% NAS SOLN 1 SPRAY BTL PRN (12:21)
[2020-08-29] MEDS: ALBUTEROL SULFATE HFA 8GM INHALATION AEROSOL INH PRN (12:22)
[2020-08-29] MEDS ORDERED: GUAIFENESIN 600 MG TAB PO PRN (12:30)
[2020-08-29] MEDS: IBUPROFEN 600 MG TAB PO PRN (14:34)
[2020-08-29] MEDS: ENOXAPARIN SOD INJ 40 MG/0.4 ML SYR SC SCH (17:08)
[2020-08-29] MEDS: ACETAMINOPHEN 325 MG TAB PO PRN (22:25)
[2020-08-30] VITALS (8 sets, daily range): BP systolic 107–133; BP diastolic 68–84
[2020-08-30] MEDS: IBUPROFEN 600 MG TAB PO PRN ×2 (03:18→20:34)
[2020-08-30 05:02] LABS: BASOPHILS % 0.4 % (0.0-1.0); EOSINOPHILS # (AUTO) 0.1 (0.0-0.4); EOSINOPHILS % 2.4 % (0.0-6.0); HEMATOCRIT 38.2 % (34.2-44.1); HEMOGLOBIN 12.2 g/dL (12.0-16.0); LYMPHOCYTES % 17.2 % (18.0-39.1); MEAN CORPUSCULAR HEMOGLOBIN 28.6 pg (28-32); MEAN CORPUSCULAR HGB CONC 31.9 g/dL (31-35); MEAN CORPUSCULAR VOLUME 89.7 fL (81-99); MONOCYTES # (AUTO) 0.5 (0.2-0.8); MONOCYTES % 8.7 % (4.4-11.3); NEUTROPHILS # (AUTO) 3.9 (2.1-6.9); NEUTROPHILS % 70.9 % (38.7-80.0); PLATELET COUNT 195 x10e3/uL (140-360); RED BLOOD COUNT 4.26 x10e6/uL (3.6-5.1); RED CELL DISTRIBUTION WIDTH 13.8 % (11.7-14.4)
[2020-08-30 05:18] LABS: ANION GAP 14.7 mmol/L (8-16); BLOOD UREA NITROGEN 8 mg/dL (7-26); BUN/CREATININE RATIO 12 (6-25); CALCIUM 8.9 mg/dL (8.4-10.2); CARBON DIOXIDE 29 mmol/L (22-29); CHLORIDE 100 mmol/L (98-107); CREATININE, SERUM 0.67 mg/dL (0.57-1.11); EST GLOMERULAR FILTRATION RATE > 60 ML/MIN (60-); GLUCOSE 134 mg/dL (74-118); POTASSIUM 3.7 mmol/L (3.5-5.1); SODIUM 140 mmol/L (136-145)
[2020-08-30] MEDS: LEVOTHYROXINE SODIUM 50 MCG TAB PO SCH (05:34)
[2020-08-30] MEDS: INSULIN LISPRO 100 UNIT/1 ML 3ML VIAL SQ SCH ×4 (07:30→22:00)
[2020-08-30] MEDS: METFORMIN HCL 500 MG TAB CR PO SCH ×2 (08:46→16:48)
[2020-08-30] MEDS: FLUTICASONE PROPIONATE NASAL SPRAY NS SCH ×2 (08:46→16:48)
[2020-08-30] MEDS: LISINOPRIL 20 MG TAB PO SCH (08:46)
[2020-08-30] MEDS: ACETAMINOPHEN 325 MG TAB PO PRN (10:49)
[2020-08-30] MEDS: ENOXAPARIN SOD INJ 40 MG/0.4 ML SYR SC SCH (16:48)
[2020-08-31] VITALS (8 sets, daily range): BP systolic 113–147; BP diastolic 58–87
[2020-08-31] MEDS: ACETAMINOPHEN 325 MG TAB PO PRN ×2 (03:34→19:59)
[2020-08-31] MEDS: LEVOTHYROXINE SODIUM 50 MCG TAB PO SCH (05:39)
[2020-08-31] MEDS: FLUTICASONE PROPIONATE NASAL SPRAY NS SCH ×2 (09:48→19:14)
[2020-08-31] MEDS: METFORMIN HCL 500 MG TAB CR PO SCH ×2 (09:48→17:00)
[2020-08-31] MEDS: LISINOPRIL 10 MG TAB PO SCH (09:48)
[2020-08-31] MEDS: INSULIN LISPRO 100 UNIT/1 ML 3ML VIAL SQ SCH ×4 (09:59→20:06)
[2020-08-31] MEDS: ENOXAPARIN SOD INJ 40 MG/0.4 ML SYR SC SCH (17:00)
[2020-08-31] MEDS ORDERED: ZOLPIDEM TARTRATE 5 MG TAB PO PRN (21:00)
[2020-09-01] VITALS (24 sets, daily range): BP systolic 76–201; BP diastolic 51–98
[2020-09-01] MEDS: LORAZEPAM 0.5 MG TAB PO PRN (02:00)
[2020-09-01] MEDS: ONDANSETRON HCL INJ 2MG/ML 2ML 2 MG/ML VIAL IV PRN (04:28)
[2020-09-01] MEDS: ACETAMINOPHEN 325 MG TAB PO PRN ×2 (04:28→10:28)
[2020-09-01] MEDS ORDERED: DILTIAZEM HCL 30 MG TAB PO SCH (04:30)
[2020-09-01] MEDS: HYDRALAZINE HCL 20 MG/ML VIAL IV PRN (04:39)
[2020-09-01] MEDS: LEVOTHYROXINE SODIUM 50 MCG TAB PO SCH (06:27)
[2020-09-01] MEDS: METFORMIN HCL 500 MG TAB CR PO SCH ×2 (08:44→16:22)
[2020-09-01] MEDS: FLUTICASONE PROPIONATE NASAL SPRAY NS SCH ×2 (08:44→15:57)
[2020-09-01] MEDS: LISINOPRIL 10 MG TAB PO SCH (08:44)
[2020-09-01] MEDS: DILTIAZEM HCL 30 MG TAB PO SCH ×3 (08:45→22:30)
[2020-09-01] MEDS: INSULIN LISPRO 100 UNIT/1 ML 3ML VIAL SQ SCH ×4 (08:47→20:59)
[2020-09-01] MEDS ORDERED: ACETAMINOPHEN 1000 MG/100 ML IV STA ×2 (13:49→20:14)
[2020-09-01] MEDS ORDERED: DEXMEDETOMIDINE 200MCG/NS 50ML 50 ML IV ONE (14:55)
[2020-09-01] MEDS: DEXMEDETOMIDINE 200MCG/NS 50ML 50 ML IV SCH (15:30)
[2020-09-01] MEDS ORDERED: LACTATED RINGER'S 1,000 ML ONE (16:19)
[2020-09-01] MEDS: PIPERACILLIN/TAZOBAC 3.375 GM in SODIUM CHLORIDE 0.9% 50ML 50 ML IV SCH (17:23)
[2020-09-01] MEDS: ENOXAPARIN SOD INJ 40 MG/0.4 ML SYR SC SCH (17:23)
[2020-09-01] MEDS ORDERED: IBUPROFEN 400 MG TAB ONE (18:21)
[2020-09-01] MEDS ORDERED: ACETAMINOPHEN 650 MG SUPP PR ONE (18:55)
[2020-09-01] MEDS: ACETAMINOPHEN 650 MG SUPP PR PRN (19:00)
[2020-09-01] MEDS ORDERED: ACETAMINOPHEN 1000 MG/100 ML 100 ML IV ONE (20:31)
[2020-09-01 21:05] LABS: BASOPHILS % 0.1 % (0.0-1.0); EOSINOPHILS # (AUTO) 0.1 (0.0-0.4); EOSINOPHILS % 1.7 % (0.0-6.0); HEMATOCRIT 34.8 % (34.2-44.1); HEMOGLOBIN 11.2 g/dL (12.0-16.0); LYMPHOCYTES # (AUTO) 0.5 (1.0-3.2); LYMPHOCYTES % 6.1 % (18.0-39.1); MEAN CORPUSCULAR HEMOGLOBIN 28.9 pg (28-32); MEAN CORPUSCULAR HGB CONC 32.2 g/dL (31-35); MEAN CORPUSCULAR VOLUME 89.9 fL (81-99); MONOCYTES # (AUTO) 0.6 (0.2-0.8); MONOCYTES % 7.2 % (4.4-11.3); NEUTROPHILS # (AUTO) 6.5 (2.1-6.9); NEUTROPHILS % 84.4 % (38.7-80.0); PLATELET COUNT 181 x10e3/uL (140-360); RED BLOOD COUNT 3.87 x10e6/uL (3.6-5.1); RED CELL DISTRIBUTION WIDTH 14.1 % (11.7-14.4)
[2020-09-01 21:18] LABS: ALANINE AMINOTRANSFERASE 38 IU/L (0-55); ALBUMIN 2.3 g/dL (3.5-5.0); ALBUMIN/GLOBULIN RATIO 0.6 (0.8-2.0); ALKALINE PHOSPHATASE 99 IU/L (40-150); ANION GAP 12.7 mmol/L (8-16); BLOOD UREA NITROGEN 6 mg/dL (7-26); BUN/CREATININE RATIO 10 (6-25); CALCIUM 8.6 mg/dL (8.4-10.2); CARBON DIOXIDE 27 mmol/L (22-29); CHLORIDE 101 mmol/L (98-107); CREATININE, SERUM 0.63 mg/dL (0.57-1.11); EST GLOMERULAR FILTRATION RATE > 60 ML/MIN (60-); GLUCOSE 185 mg/dL (74-118); POTASSIUM 3.7 mmol/L (3.5-5.1); SODIUM 137 mmol/L (136-145)
[2020-09-02] VITALS (27 sets, daily range): BP systolic 64–162; BP diastolic 52–87
[2020-09-02] MEDS: PIPERACILLIN/TAZOBAC 3.375 GM in SODIUM CHLORIDE 0.9% 50ML 50 ML IV SCH ×3 (00:11→14:18)
[2020-09-02] MEDS: DEXMEDETOMIDINE 200MCG/NS 50ML 50 ML IV SCH ×4 (00:16→08:44)
[2020-09-02] MEDS ORDERED: ACETAMINOPHEN 1000 MG/100 ML IV STA (02:16)
[2020-09-02] MEDS ORDERED: ACETAMINOPHEN 1000 MG/100 ML 100 ML IV ONE ×2 (03:21→23:05)
[2020-09-02] MEDS: DILTIAZEM HCL 30 MG TAB PO SCH ×4 (04:30→21:52)
[2020-09-02] MEDS: LEVOTHYROXINE SODIUM 50 MCG TAB PO SCH (06:00)
[2020-09-02 06:01] LABS: BASOPHILS % 0.4 % (0.0-1.0); EOSINOPHILS # (AUTO) 0.1 (0.0-0.4); EOSINOPHILS % 1.4 % (0.0-6.0); HEMATOCRIT 35.7 % (34.2-44.1); HEMOGLOBIN 11.4 g/dL (12.0-16.0); LYMPHOCYTES # (AUTO) 0.4 (1.0-3.2); LYMPHOCYTES % 4.9 % (18.0-39.1); MEAN CORPUSCULAR HEMOGLOBIN 29.2 pg (28-32); MEAN CORPUSCULAR HGB CONC 31.9 g/dL (31-35); MEAN CORPUSCULAR VOLUME 91.5 fL (81-99); MONOCYTES # (AUTO) 0.4 (0.2-0.8); MONOCYTES % 4.9 % (4.4-11.3); PLATELET COUNT 165 x10e3/uL (140-360)
[2020-09-02 06:23] LABS: ANION GAP 9.8 mmol/L (8-16); CALCIUM 8.5 mg/dL (8.4-10.2); CARBON DIOXIDE 30 mmol/L (22-29); CHLORIDE 102 mmol/L (98-107); POTASSIUM 3.8 mmol/L (3.5-5.1); SODIUM 138 mmol/L (136-145)
[2020-09-02 06:51] LABS: BLOOD UREA NITROGEN 9 mg/dL (7-26); BUN/CREATININE RATIO 15 (6-25); CREATININE, SERUM 0.59 mg/dL (0.57-1.11); EST GLOMERULAR FILTRATION RATE > 60 ML/MIN (60-); GLUCOSE 169 mg/dL (74-118)
[2020-09-02] MEDS: INSULIN LISPRO 100 UNIT/1 ML 3ML VIAL SQ SCH ×3 (07:30→16:30)
[2020-09-02] MEDS: METFORMIN HCL 500 MG TAB CR PO SCH ×2 (07:46→16:57)
[2020-09-02] MEDS: FLUTICASONE PROPIONATE NASAL SPRAY NS SCH ×2 (08:05→16:57)
[2020-09-02] MEDS: LISINOPRIL 10 MG TAB PO SCH (08:05)
[2020-09-02] MEDS ORDERED: LACTATED RINGER'S 1,000 ML ONE (12:00)
[2020-09-02] MEDS ORDERED: NOREPINEPHRINE 8 MG/D5W 250 ML 250 ML ONE (12:11)
[2020-09-02] MEDS ORDERED: SODIUM CHLORIDE 0.9% 1000ML 1,000 ML ONE (12:24)
[2020-09-02] MEDS: FENTANYL 2000MCG/NS 250 250 ML IV SCH ×2 (12:28→20:51)
[2020-09-02] MEDS: MIDAZOLAM HCL 5MG/ML 10ML VIAL 100 ML IV PRN ×2 (12:29→20:50)
[2020-09-02] MEDS ORDERED: LACTATED RINGER'S 1,000 ML INJ ONE ×2 (12:45→16:15)
[2020-09-02] MEDS: NOREPINEPHRINE 8 MG/D5W 250 ML 250 ML IV SCH ×2 (12:45→17:36)
[2020-09-02 14:27] LABS: ABG HCO3 25 mmol/L (22-26); ABG PCO2 50 mmHg (35-45); ABG PH 7.31 (7.35-7.45); ABG PO2 62 mmHg (80-105); ABG TCO2 27
[2020-09-02] MEDS: ACETAMINOPHEN 1000 MG/100 ML IV PRN ×2 (14:56→23:15)
[2020-09-02] MEDS: ROCURONIUM BROMIDE 1,250 MG in SODIUM CHLORIDE 0.9% 250ML 125 ML IV SCH ×2 (16:00→20:45)
[2020-09-02] MEDS: MEROPENEM 1GRAM 1 GM in SODIUM CHLORIDE 0.9% 100 ML 100 ML IV SCH ×2 (16:30→22:00)
[2020-09-02] MEDS: ENOXAPARIN SOD INJ 40 MG/0.4 ML SYR SC SCH (16:57)
[2020-09-02] MEDS: VANCOMYCIN 1GM/NS 250 ML 250 ML IV SCH (16:57)
[2020-09-02] MEDS: VASOPRESSIN 60 UNIT in DEXTROSE 5% 50ML 57 ML IV PRN (17:00)
[2020-09-02 17:03] LABS: CLARITY,URINE CLOUDY (CLEAR); COLOR,URINE YELLOW (YELLOW)
[2020-09-02 17:04] LABS: KETONES,URINE 1+ (NEGATIVE); LEUKOCYTE ESTERASE ,URINE NEGATIVE (NEGATIVE); NITRITE,URINE NEGATIVE (NEGATIVE); PROTEIN,URINE DIPSTICK 2+ (NEGATIVE); URINE UROBILINOGEN 1 mg/dL (0.2 - 1)
[2020-09-02 17:08] LABS: BACTERIA,URINE MODERATE /HPF
[2020-09-02 17:09] LABS: EPITHELIAL CELLS,URINE FEW /LPF
[2020-09-03] VITALS (25 sets, daily range): BP systolic 78–152; BP diastolic 47–84
[2020-09-03] MEDS: INSULIN LISPRO 100 UNIT/1 ML 3ML VIAL SQ SCH ×4 (00:29→17:25)
[2020-09-03] MEDS: VANCOMYCIN 1GM/NS 250 ML 250 ML IV SCH ×2 (04:30→16:29)
[2020-09-03] MEDS: DILTIAZEM HCL 30 MG TAB PO SCH ×4 (04:30→22:30)
[2020-09-03 05:13] LABS: BASOPHILS # (AUTO) 0.1 (0.0-0.1); BASOPHILS % 0.5 % (0.0-1.0); EOSINOPHILS # (AUTO) 0.4 (0.0-0.4); EOSINOPHILS % 4.2 % (0.0-6.0); HEMATOCRIT 33.6 % (34.2-44.1); HEMOGLOBIN 10.9 g/dL (12.0-16.0); LYMPHOCYTES # (AUTO) 1.3 (1.0-3.2); MEAN CORPUSCULAR HEMOGLOBIN 29.3 pg (28-32); MEAN CORPUSCULAR HGB CONC 32.4 g/dL (31-35); MEAN CORPUSCULAR VOLUME 90.3 fL (81-99); MONOCYTES # (AUTO) 0.7 (0.2-0.8); MONOCYTES % 7.3 % (4.4-11.3); NEUTROPHILS # (AUTO) 7.4 (2.1-6.9); NEUTROPHILS % 74.4 % (38.7-80.0); PLATELET COUNT 241 x10e3/uL (140-360); RED BLOOD COUNT 3.72 x10e6/uL (3.6-5.1); RED CELL DISTRIBUTION WIDTH 14.3 % (11.7-14.4)
[2020-09-03 05:29] LABS: ALANINE AMINOTRANSFERASE 28 IU/L (0-55); ALBUMIN 1.8 g/dL (3.5-5.0); ALBUMIN/GLOBULIN RATIO 0.5 (0.8-2.0); ALKALINE PHOSPHATASE 90 IU/L (40-150); ANION GAP 13.7 mmol/L (8-16); BLOOD UREA NITROGEN 14 mg/dL (7-26); BUN/CREATININE RATIO 21 (6-25); CALCIUM 8.2 mg/dL (8.4-10.2); CARBON DIOXIDE 24 mmol/L (22-29); CHLORIDE 101 mmol/L (98-107); CREATININE, SERUM 0.66 mg/dL (0.57-1.11); EST GLOMERULAR FILTRATION RATE > 60 ML/MIN (60-); GLUCOSE 172 mg/dL (74-118); POTASSIUM 3.7 mmol/L (3.5-5.1); SODIUM 135 mmol/L (136-145)
[2020-09-03] MEDS ORDERED: ACETAMINOPHEN 1000 MG/100 ML 100 ML IV ONE (05:39)
[2020-09-03] MEDS ORDERED: HEPARIN SOD/SOD CHLORIDE 1,000 ML ONE (05:48)
[2020-09-03] MEDS: LEVOTHYROXINE SODIUM 50 MCG TAB PO SCH (06:07)
[2020-09-03] MEDS: MEROPENEM 1GRAM 1 GM in SODIUM CHLORIDE 0.9% 100 ML 100 ML IV SCH (06:07)
[2020-09-03] MEDS: ACETAMINOPHEN 1000 MG/100 ML IV PRN (06:07)
[2020-09-03] MEDS: MIDAZOLAM HCL 5MG/ML 10ML VIAL 100 ML IV PRN ×2 (06:45→16:31)
[2020-09-03 06:51] LABS: ABG HCO3 28 mmol/L (22-26); ABG PCO2 56 mmHg (35-45); ABG PH 7.31 (7.35-7.45); ABG PO2 85 mmHg (80-105); ABG TCO2 30
[2020-09-03] MEDS: FLUTICASONE PROPIONATE NASAL SPRAY NS SCH ×2 (07:56→16:29)
[2020-09-03] MEDS: METFORMIN HCL 500 MG TAB CR PO SCH (07:56)
[2020-09-03] MEDS: FENTANYL 2000MCG/NS 250 250 ML IV SCH ×2 (09:19→23:16)
[2020-09-03] MEDS: MEROPENEM 1GM 100 ML IV SCH ×2 (13:44→23:00)
[2020-09-03] MEDS: ENOXAPARIN SOD INJ 40 MG/0.4 ML SYR SC SCH (16:29)
[2020-09-03] MEDS: ACETAMINOPHEN 650 MG SUPP PR PRN (17:17)
[2020-09-03] MEDS: NOREPINEPHRINE 8 MG/D5W 250 ML 250 ML IV SCH (20:29)
[2020-09-03] MEDS: VASOPRESSIN 60 UNIT in DEXTROSE 5% 50ML 57 ML IV PRN (20:30)
[2020-09-04] VITALS (25 sets, daily range): BP systolic 77–108; BP diastolic 52–84
[2020-09-04] MEDS: INSULIN LISPRO 100 UNIT/1 ML 3ML VIAL SQ SCH ×5 (01:26→23:14)
[2020-09-04] MEDS: MIDAZOLAM HCL 5MG/ML 10ML VIAL 100 ML IV PRN ×2 (03:04→20:30)
[2020-09-04] MEDS: DILTIAZEM HCL 30 MG TAB PO SCH ×2 (04:30→07:40)
[2020-09-04] MEDS: VANCOMYCIN 1GM/NS 250 ML 250 ML IV SCH ×2 (05:32→16:35)
[2020-09-04] MEDS: MEROPENEM 1GM 100 ML IV SCH ×3 (05:32→21:22)
[2020-09-04] MEDS: LEVOTHYROXINE SODIUM 50 MCG TAB PO SCH (05:32)
[2020-09-04 05:53] LABS: BASOPHILS % 0.4 % (0.0-1.0); EOSINOPHILS # (AUTO) 0.3 (0.0-0.4); HEMOGLOBIN 10.4 g/dL (12.0-16.0); LYMPHOCYTES # (AUTO) 1.2 (1.0-3.2); LYMPHOCYTES % 13.7 % (18.0-39.1); MEAN CORPUSCULAR HEMOGLOBIN 28.9 pg (28-32); MEAN CORPUSCULAR HGB CONC 31.5 g/dL (31-35); MEAN CORPUSCULAR VOLUME 91.7 fL (81-99); MONOCYTES # (AUTO) 0.6 (0.2-0.8); MONOCYTES % 7.5 % (4.4-11.3); NEUTROPHILS # (AUTO) 6.2 (2.1-6.9); NEUTROPHILS % 73.6 % (38.7-80.0); PLATELET COUNT 257 x10e3/uL (140-360); RED CELL DISTRIBUTION WIDTH 14.5 % (11.7-14.4)
[2020-09-04 06:24] LABS: ALANINE AMINOTRANSFERASE 22 IU/L (0-55); ALBUMIN 1.6 g/dL (3.5-5.0); ALBUMIN/GLOBULIN RATIO 0.4 (0.8-2.0); ALKALINE PHOSPHATASE 95 IU/L (40-150); BLOOD UREA NITROGEN 11 mg/dL (7-26); BUN/CREATININE RATIO 17 (6-25); CALCIUM 8.1 mg/dL (8.4-10.2); CARBON DIOXIDE 25 mmol/L (22-29); CHLORIDE 99 mmol/L (98-107); CREATININE, SERUM 0.64 mg/dL (0.57-1.11); EST GLOMERULAR FILTRATION RATE > 60 ML/MIN (60-); GLUCOSE 216 mg/dL (74-118); SODIUM 135 mmol/L (136-145)
[2020-09-04] MEDS: FLUTICASONE PROPIONATE NASAL SPRAY NS SCH ×2 (07:40→16:36)
[2020-09-04] MEDS: NOREPINEPHRINE 8 MG/D5W 250 ML 250 ML IV SCH ×3 (08:08→21:22)
[2020-09-04 08:55] LABS: ABG HCO3 27 mmol/L (22-26); ABG PCO2 48 mmHg (35-45); ABG PH 7.35 (7.35-7.45); ABG PO2 109 mmHg (80-105)
[2020-09-04 08:56] LABS: ABG TCO2 28
[2020-09-04] MEDS ORDERED: ALBUMIN 25% 25GM 100ML 0.25 GM/ML BTL IV SCH (13:00)
[2020-09-04] MEDS: FUROSEMIDE INJ 10 MG/ML 4 ML VIAL IV SCH ×2 (15:13→21:22)
[2020-09-04] MEDS: ALBUMIN 25% 25GM 100ML 100 ML IV SCH ×2 (15:48→21:22)
[2020-09-04] MEDS: IBUPROFEN 600 MG TAB PO PRN (16:14)
[2020-09-04] MEDS: ENOXAPARIN SOD INJ 40 MG/0.4 ML SYR SC SCH (17:05)
[2020-09-04 17:44] LABS: ABG HCO3 30 mmol/L (22-26); ABG PCO2 58 mmHg (35-45); ABG PH 7.33 (7.35-7.45); ABG PO2 73 mmHg (80-105)
[2020-09-04 17:45] LABS: ABG TCO2 32
[2020-09-04] MEDS: ROCURONIUM BROMIDE 1,250 MG in SODIUM CHLORIDE 0.9% 250ML 125 ML IV SCH (17:56)
[2020-09-04] MEDS ORDERED: VASOPRESSIN INJ 20 UNIT/ML VIAL ONE (20:28)
[2020-09-04] MEDS: VASOPRESSIN 60 UNIT in DEXTROSE 5% 50ML 57 ML IV PRN (21:23)
[2020-09-05] VITALS (24 sets, daily range): BP systolic 78–139; BP diastolic 50–83
[2020-09-05] MEDS: VANCOMYCIN 1GM/NS 250 ML 250 ML IV SCH ×2 (03:41→16:15)
[2020-09-05] MEDS: ACETAMINOPHEN 650 MG SUPP PR PRN (03:41)
[2020-09-05] MEDS: MEROPENEM 1GM 100 ML IV SCH ×3 (05:30→22:26)
[2020-09-05] MEDS: ALBUMIN 25% 25GM 100ML 100 ML IV SCH (05:30)
[2020-09-05] MEDS: LEVOTHYROXINE SODIUM 50 MCG TAB PO SCH (05:30)
[2020-09-05 05:48] LABS: BASOPHILS % 0.4 % (0.0-1.0); EOSINOPHILS # (AUTO) 0.1 (0.0-0.4); EOSINOPHILS % 1.5 % (0.0-6.0); HEMATOCRIT 30.8 % (34.2-44.1); HEMOGLOBIN 9.3 g/dL (12.0-16.0); LYMPHOCYTES % 21.2 % (18.0-39.1); MEAN CORPUSCULAR HEMOGLOBIN 28.7 pg (28-32); MEAN CORPUSCULAR HGB CONC 30.2 g/dL (31-35); MEAN CORPUSCULAR VOLUME 95.1 fL (81-99); MONOCYTES # (AUTO) 0.5 (0.2-0.8); MONOCYTES % 10.2 % (4.4-11.3); NEUTROPHILS # (AUTO) 3.1 (2.1-6.9); NEUTROPHILS % 64.2 % (38.7-80.0); PLATELET COUNT 239 x10e3/uL (140-360); RED BLOOD COUNT 3.24 x10e6/uL (3.6-5.1); RED CELL DISTRIBUTION WIDTH 14.6 % (11.7-14.4)
[2020-09-05] MEDS: INSULIN LISPRO 100 UNIT/1 ML 3ML VIAL SQ SCH ×4 (06:43→23:50)
[2020-09-05 07:32] LABS: ALBUMIN 2.9 g/dL (3.5-5.0); ALBUMIN/GLOBULIN RATIO 0.9 (0.8-2.0); ANION GAP 16.6 mmol/L (8-16); CREATININE, SERUM 1.16 mg/dL (0.57-1.11); POTASSIUM 4.6 mmol/L (3.5-5.1)
[2020-09-05] MEDS: NOREPINEPHRINE 8 MG/D5W 250 ML 250 ML IV SCH ×4 (07:40→23:39)
[2020-09-05] MEDS: FLUTICASONE PROPIONATE NASAL SPRAY NS SCH (08:36)
[2020-09-05 09:18] LABS: ABG HCO3 26 mmol/L (22-26); ABG PCO2 57 mmHg (35-45); ABG PH 7.26 (7.35-7.45); ABG PO2 94 mmHg (80-105); ABG TCO2 27
[2020-09-05 09:35] LABS: BAND NEUTROPHILS % (MANUAL) 10 %; EOSINOPHILS % (MANUAL) 4 % (0-7); LYMPHOCYTES % (MANUAL) 18 % (19-48); METAMYELOCYTES % (MANUAL) 1 % (0-0); MONOCYTES % (MANUAL) 10 % (3.4-9.0); NEUTROPHILS % (MANUAL) 57 % (40-74); NUCLEATED RED BLOOD CELLS 2
[2020-09-05 09:36] LABS: PLATELET ESTIMATE ADEQUATE; PLATELET MORPHOLOGY COMMENT FEW GIANT
[2020-09-05 09:37] LABS: HYPOCHROMASIA SLIGHT; POLYCHROMASIA FEW
[2020-09-05] MEDS: FENTANYL 2000MCG/NS 250 250 ML IV SCH (12:26)
[2020-09-05] MEDS: ACETAMINOPHEN 325 MG TAB PO PRN (12:57)
[2020-09-05] MEDS: VASOPRESSIN 60 UNIT in DEXTROSE 5% 50ML 57 ML IV PRN (14:48)
[2020-09-05] MEDS ORDERED: LACTATED RINGER'S 1,000 ML INJ SCH ×2 (16:00)
[2020-09-05 16:28] LABS: ABG PH 7.37 (7.35-7.45)
[2020-09-05 16:29] LABS: ABG HCO3 24 mmol/L (22-26); ABG PCO2 41 mmHg (35-45); ABG PO2 68 mmHg (80-105); ABG TCO2 25
[2020-09-05] MEDS: SODIUM CHLORIDE 0.9% 1000ML 1,000 ML IV SCH (16:49)
[2020-09-05] MEDS: ENOXAPARIN SOD INJ 40 MG/0.4 ML SYR SC SCH (16:54)
[2020-09-05] MEDS ORDERED: FUROSEMIDE INJ 10 MG/ML 4 ML VIAL IV ONE (17:00)
[2020-09-05] MEDS: ROCURONIUM BROMIDE 1,250 MG in SODIUM CHLORIDE 0.9% 250ML 125 ML IV SCH (17:55)
[2020-09-05] MEDS: MIDAZOLAM HCL 5MG/ML 10ML VIAL 100 ML IV PRN (17:57)
[2020-09-05] MEDS ORDERED: FUROSEMIDE INJ 10 MG/ML 4 ML VIAL ONE (23:53)
[2020-09-06] VITALS (25 sets, daily range): BP systolic 93–131; BP diastolic 55–79
[2020-09-06] MEDS: MIDAZOLAM HCL 5MG/ML 10ML VIAL 100 ML IV PRN ×2 (00:45→18:51)
[2020-09-06] MEDS: FENTANYL 2000MCG/NS 250 250 ML IV SCH (03:53)
[2020-09-06] MEDS: MEROPENEM 1GM 100 ML IV SCH ×3 (05:11→21:40)
[2020-09-06] MEDS: VANCOMYCIN 1GM/NS 250 ML 250 ML IV SCH ×2 (05:11→16:23)
[2020-09-06] MEDS: LEVOTHYROXINE SODIUM 50 MCG TAB PO SCH (05:11)
[2020-09-06 05:40] LABS: BASOPHILS # (AUTO) 0.1 (0.0-0.1); EOSINOPHILS # (AUTO) 0.2 (0.0-0.4); HEMATOCRIT 32.6 % (34.2-44.1); HEMOGLOBIN 10.2 g/dL (12.0-16.0); LYMPHOCYTES % 12.6 % (18.0-39.1); MEAN CORPUSCULAR HEMOGLOBIN 28.5 pg (28-32); MEAN CORPUSCULAR HGB CONC 31.3 g/dL (31-35); MEAN CORPUSCULAR VOLUME 91.1 fL (81-99); MONOCYTES # (AUTO) 0.4 (0.2-0.8); MONOCYTES % 5.3 % (4.4-11.3); NEUTROPHILS # (AUTO) 5.9 (2.1-6.9); NEUTROPHILS % 73.3 % (38.7-80.0); PLATELET COUNT 213 x10e3/uL (140-360); RED BLOOD COUNT 3.58 x10e6/uL (3.6-5.1); RED CELL DISTRIBUTION WIDTH 14.5 % (11.7-14.4)
[2020-09-06] MEDS: NOREPINEPHRINE 8 MG/D5W 250 ML 250 ML IV SCH ×2 (05:43→16:23)
[2020-09-06] MEDS: SODIUM CHLORIDE 0.9% 1000ML 1,000 ML IV SCH (06:05)
[2020-09-06 06:20] LABS: ALANINE AMINOTRANSFERASE 1206 IU/L (0-55); ALBUMIN 2.2 g/dL (3.5-5.0); ALBUMIN/GLOBULIN RATIO 0.7 (0.8-2.0); ALKALINE PHOSPHATASE 121 IU/L (40-150); ANION GAP 17.8 mmol/L (8-16); BLOOD UREA NITROGEN 22 mg/dL (7-26); BUN/CREATININE RATIO 23 (6-25); CALCIUM 7.7 mg/dL (8.4-10.2); CARBON DIOXIDE 22 mmol/L (22-29); CHLORIDE 99 mmol/L (98-107); CREATININE, SERUM 0.94 mg/dL (0.57-1.11); EST GLOMERULAR FILTRATION RATE > 60 ML/MIN (60-); GLUCOSE 215 mg/dL (74-118); POTASSIUM 3.8 mmol/L (3.5-5.1); SODIUM 135 mmol/L (136-145)
[2020-09-06] MEDS: INSULIN LISPRO 100 UNIT/1 ML 3ML VIAL SQ SCH ×3 (06:35→18:11)
[2020-09-06] MEDS ORDERED: METOCLOPRAMIDE HCL 10 MG/2ML VIAL IV ONE (07:00)
[2020-09-06 07:58] LABS: BAND NEUTROPHILS % (MANUAL) 3 %; EOSINOPHILS % (MANUAL) 4 % (0-7); LYMPHOCYTES % (MANUAL) 18 % (19-48); MONOCYTES % (MANUAL) 3 % (3.4-9.0); MYELOCYTES % (MANUAL) 3 % (0-0); NEUTROPHILS % (MANUAL) 69 % (40-74); NUCLEATED RED BLOOD CELLS 4; PLATELET ESTIMATE ADEQUATE; PLATELET MORPHOLOGY COMMENT FEW EDTA CLUMPING; RBC MORPHOLOGY COMMENT NORMAL
[2020-09-06 11:50] LABS: ABG HCO3 21 mmol/L (22-26); ABG PCO2 42 mmHg (35-45); ABG PH 7.32 (7.35-7.45); ABG PO2 57 mmHg (80-105); ABG TCO2 23
[2020-09-06] MEDS: METOCLOPRAMIDE HCL 10 MG/2ML VIAL IV SCH ×2 (14:30→21:40)
[2020-09-06] MEDS: ROCURONIUM BROMIDE 1,250 MG in SODIUM CHLORIDE 0.9% 250ML 125 ML IV SCH (14:31)
[2020-09-06] MEDS: ENOXAPARIN SOD INJ 40 MG/0.4 ML SYR SC SCH (16:58)
[2020-09-06] MEDS ORDERED: SODIUM CHLORIDE 0.9% 1000ML 1,000 ML IV ONE (17:15)
[2020-09-06] MEDS ORDERED: FUROSEMIDE INJ 10 MG/ML 4 ML VIAL IV ONE (17:15)
[2020-09-06] MEDS ORDERED: FUROSEMIDE INJ 10 MG/ML 4 ML VIAL ONE (21:42)
[2020-09-07] VITALS (30 sets, daily range): BP systolic 58–148; BP diastolic 28–99
[2020-09-07] MEDS: INSULIN LISPRO 100 UNIT/1 ML 3ML VIAL SQ SCH ×4 (00:17→18:00)
[2020-09-07] MEDS: MIDAZOLAM HCL 5MG/ML 10ML VIAL 100 ML IV PRN ×2 (01:39→20:44)
[2020-09-07 04:54] LABS: BASOPHILS # (AUTO) 0.1 (0.0-0.1); BASOPHILS % 0.9 % (0.0-1.0); EOSINOPHILS # (AUTO) 0.3 (0.0-0.4); EOSINOPHILS % 2.5 % (0.0-6.0); HEMATOCRIT 33.2 % (34.2-44.1); HEMOGLOBIN 10.7 g/dL (12.0-16.0); LYMPHOCYTES % 8.3 % (18.0-39.1); MEAN CORPUSCULAR HEMOGLOBIN 28.8 pg (28-32); MEAN CORPUSCULAR HGB CONC 32.2 g/dL (31-35); MEAN CORPUSCULAR VOLUME 89.5 fL (81-99); MONOCYTES # (AUTO) 0.6 (0.2-0.8); MONOCYTES % 4.5 % (4.4-11.3); NEUTROPHILS # (AUTO) 9.5 (2.1-6.9); NEUTROPHILS % 75.8 % (38.7-80.0); PLATELET COUNT 221 x10e3/uL (140-360); RED BLOOD COUNT 3.71 x10e6/uL (3.6-5.1); RED CELL DISTRIBUTION WIDTH 14.9 % (11.7-14.4)
[2020-09-07 05:13] LABS: ALANINE AMINOTRANSFERASE 862 IU/L (0-55); ALBUMIN 1.8 g/dL (3.5-5.0); ALBUMIN/GLOBULIN RATIO 0.6 (0.8-2.0); ALKALINE PHOSPHATASE 126 IU/L (40-150); ANION GAP 13.9 mmol/L (8-16); BLOOD UREA NITROGEN 24 mg/dL (7-26); BUN/CREATININE RATIO 29 (6-25); CALCIUM 7.6 mg/dL (8.4-10.2); CARBON DIOXIDE 24 mmol/L (22-29); CHLORIDE 102 mmol/L (98-107); CREATININE, SERUM 0.83 mg/dL (0.57-1.11); EST GLOMERULAR FILTRATION RATE > 60 ML/MIN (60-); GLUCOSE 257 mg/dL (74-118); POTASSIUM 3.9 mmol/L (3.5-5.1); SODIUM 136 mmol/L (136-145)
[2020-09-07] MEDS: LEVOTHYROXINE SODIUM 50 MCG TAB PO SCH (05:41)
[2020-09-07] MEDS: MEROPENEM 1GM 100 ML IV SCH ×3 (05:41→20:43)
[2020-09-07] MEDS: VANCOMYCIN 1GM/NS 250 ML 250 ML IV SCH ×2 (05:41→16:28)
[2020-09-07] MEDS: METOCLOPRAMIDE HCL 10 MG/2ML VIAL IV SCH ×3 (05:41→20:43)
[2020-09-07] MEDS: FENTANYL 2000MCG/NS 250 250 ML IV SCH ×2 (07:29→10:27)
[2020-09-07] MEDS: NOREPINEPHRINE 8 MG/D5W 250 ML 250 ML IV SCH (07:59)
[2020-09-07 09:14] LABS: ABG HCO3 24 mmol/L (22-26); ABG PCO2 45 mmHg (35-45); ABG PH 7.34 (7.35-7.45); ABG PO2 70 mmHg (80-105); ABG TCO2 26
[2020-09-07 12:48] LABS: ANISOCYTOSIS SLIGHT; BAND NEUTROPHILS % (MANUAL) 2 %; EOSINOPHILS % (MANUAL) 4 % (0-7); LYMPHOCYTES % (MANUAL) 6 % (19-48); MONOCYTES % (MANUAL) 1 % (3.4-9.0); MYELOCYTES % (MANUAL) 5 % (0-0); NEUTROPHILS % (MANUAL) 82 % (40-74); PLATELET ESTIMATE ADEQUATE
[2020-09-07 12:49] LABS: POLYCHROMASIA FEW
[2020-09-07 12:50] LABS: PLATELET MORPHOLOGY COMMENT FEW EDTA CLUMPING; RBC MORPHOLOGY COMMENT NORMAL
[2020-09-07] MEDS: ROCURONIUM BROMIDE 1,250 MG in SODIUM CHLORIDE 0.9% 250ML 125 ML IV SCH (13:00)
[2020-09-07] MEDS ORDERED: FUROSEMIDE INJ 10 MG/ML 2 ML VIAL IV ONE (16:30)
[2020-09-07] MEDS: ENOXAPARIN SOD INJ 40 MG/0.4 ML SYR SC SCH (16:36)
[2020-09-07] MEDS ORDERED: FUROSEMIDE INJ 10 MG/ML 4 ML VIAL ONE (16:40)
[2020-09-07] MEDS: ACETAMINOPHEN 325 MG TAB PO PRN (16:59)
[2020-09-07] MEDS ORDERED: ALBUMIN 25% 25GM 100ML 0.25 GM/ML BTL IV ONE (18:30)
[2020-09-07] MEDS ORDERED: ALBUMIN 25% 25GM 100ML 200 ML IV ONE (18:45)
[2020-09-07] MEDS: PHENYLEPHRINE 10MG/ML VIAL 40 MG in DEXTROSE 5% 250ML 246 ML IV SCH (20:06)
[2020-09-08] VITALS (26 sets, daily range): BP systolic 59–127; BP diastolic 29–92
[2020-09-08] MEDS: MIDAZOLAM HCL 5MG/ML 10ML VIAL 100 ML IV PRN ×3 (02:48→18:02)
[2020-09-08] MEDS: NOREPINEPHRINE 8 MG/D5W 250 ML 250 ML IV SCH (02:49)
[2020-09-08] MEDS ORDERED: VASOPRESSIN INJ 20 UNIT/ML VIAL ONE ×2 (03:09→03:12)
[2020-09-08] MEDS: VASOPRESSIN 60 UNIT in DEXTROSE 5% 50ML 57 ML IV PRN ×2 (03:13→15:28)
[2020-09-08] MEDS ORDERED: DEXTROSE 5% 50ML 50 ML IV ONE (03:15)
[2020-09-08] MEDS: VANCOMYCIN 1GM/NS 250 ML 250 ML IV SCH (04:26)
[2020-09-08 04:54] LABS: BASOPHILS # (AUTO) 0.1 (0.0-0.1); BASOPHILS % 0.2 % (0.0-1.0); EOSINOPHILS # (AUTO) 0.1 (0.0-0.4); EOSINOPHILS % 0.7 % (0.0-6.0); HEMATOCRIT 34.3 % (34.2-44.1); HEMOGLOBIN 10.8 g/dL (12.0-16.0); LYMPHOCYTES % 9.8 % (18.0-39.1); MEAN CORPUSCULAR HEMOGLOBIN 29.5 pg (28-32); MEAN CORPUSCULAR HGB CONC 31.5 g/dL (31-35); MEAN CORPUSCULAR VOLUME 93.7 fL (81-99); MONOCYTES # (AUTO) 1.1 (0.2-0.8); MONOCYTES % 5.3 % (4.4-11.3); NEUTROPHILS # (AUTO) 13.7 (2.1-6.9); NEUTROPHILS % 67.4 % (38.7-80.0); PLATELET COUNT 225 x10e3/uL (140-360); RED BLOOD COUNT 3.66 x10e6/uL (3.6-5.1); RED CELL DISTRIBUTION WIDTH 15.4 % (11.7-14.4)
[2020-09-08 05:18] LABS: ALBUMIN 2.6 g/dL (3.5-5.0); ALBUMIN/GLOBULIN RATIO 0.9 (0.8-2.0); CALCIUM 7.5 mg/dL (8.4-10.2)
[2020-09-08] MEDS: METOCLOPRAMIDE HCL 10 MG/2ML VIAL IV SCH ×3 (05:35→21:31)
[2020-09-08] MEDS: MEROPENEM 1GM 100 ML IV SCH (05:35)
[2020-09-08] MEDS: ACETAMINOPHEN 325 MG TAB PO PRN (05:35)
[2020-09-08 05:37] LABS: ANION GAP 24.1 mmol/L (8-16)
[2020-09-08 05:38] LABS: CREATININE, SERUM 1.6 mg/dL (0.57-1.11); POTASSIUM 5.1 mmol/L (3.5-5.1)
[2020-09-08] MEDS: INSULIN LISPRO 100 UNIT/1 ML 3ML VIAL SQ SCH ×4 (05:42→18:00)
[2020-09-08] MEDS: LEVOTHYROXINE SODIUM 50 MCG TAB PO SCH (05:42)
[2020-09-08] MEDS: ACETAMINOPHEN 650 MG SUPP PR PRN (08:19)
[2020-09-08] MEDS: FENTANYL 2000MCG/NS 250 250 ML IV SCH ×2 (08:20→22:00)
[2020-09-08] MEDS ORDERED: SODIUM BICARBONATE 8.4% INJ 50 ML SYR IV STA (08:45)
[2020-09-08 08:47] LABS: ABG HCO3 17 mmol/L (22-26); ABG PCO2 54 mmHg (35-45); ABG PH 7.12 (7.35-7.45); ABG PO2 91 mmHg (80-105); ABG TCO2 18
[2020-09-08] MEDS ORDERED: FLUCONAZOLE 400MG/200ML BAG 200 ML IV SCH (10:45)
[2020-09-08] MEDS ORDERED: FLUCONAZOLE 200 MG/100 ML 0 ML IV ONE (11:54)
[2020-09-08] MEDS ORDERED: FLUCONAZOLE 400MG/200ML BAG 200 ML IV ONE (11:56)
[2020-09-08] MEDS: PHENYLEPHRINE 10MG/ML VIAL 40 MG in DEXTROSE 5% 250ML 246 ML IV SCH (12:39)
[2020-09-08] MEDS: MEROPENEM 500MG/ NS 50ML 50 ML IV SCH ×2 (13:56→21:31)
[2020-09-08] MEDS ORDERED: MEROPENEM 500MG 500 MG in SODIUM CHLORIDE 0.9% 50ML 50 ML IV SCH (14:00)
[2020-09-08] MEDS: IBUPROFEN 200 MG TAB PO PRN ×2 (14:12→20:00)
[2020-09-08] MEDS ORDERED: IBUPROFEN 400 MG TAB ONE (14:19)
[2020-09-08] MEDS: ROCURONIUM BROMIDE 1,250 MG in SODIUM CHLORIDE 0.9% 250ML 125 ML IV SCH (16:00)
[2020-09-08] MEDS: ACETAMINOPHEN 1000 MG/100 ML IV PRN ×2 (16:05→23:30)
[2020-09-08] MEDS ORDERED: SODIUM CHLORIDE 0.9% 1000ML 1,000 ML IV SCH (16:45)
[2020-09-08] MEDS ORDERED: SODIUM BICARBONATE 8.4% 50 ML in SODIUM CHLORIDE 0.45% 1,000 ML IV SCH (17:00)
[2020-09-08] MEDS ORDERED: ENOXAPARIN SOD INJ 40 MG/0.4 ML SYR SC SCH (17:00)
[2020-09-08] MEDS ORDERED: ACETAMINOPHEN 1000 MG/100 ML 100 ML IV ONE (23:27)
[2020-09-09] VITALS: BP 69/49
[2020-09-09] MEDS: INSULIN LISPRO 100 UNIT/1 ML 3ML VIAL SQ SCH (00:10)
[2020-09-09] MEDS: MIDAZOLAM HCL 5MG/ML 10ML VIAL 100 ML IV PRN (00:51)
[2020-09-09 01:00] VITALS: BP 63/49
[2020-09-09 02:00] VITALS: BP 62/51
[2020-09-09 03:00] VITALS: BP 53/44
[2020-09-09] MEDS ORDERED: ATROPINE SULFATE 0.1 MG/ML 10ML SYR ONE (03:12)
[2020-09-09] MEDS ORDERED: EPINEPHRINE HCL SYRINGE ONE (03:12)
[2020-09-09] MEDS ORDERED: VANCOMYCIN 1GM/NS 250 ML 250 ML IV SCH (04:15)
[2020-09-09] MEDS ORDERED: FLUCONAZOLE 200 MG/100 ML 100 ML IV SCH (12:00)
== END 2020-09-09 08:09 | disposition expired | DRG 870 ==
LOC: FSED 13:50 → ERHOLD 15:48 → MED/SURG3 22:16 → IMCU 08-16 10:37 → ICU 09-01 12:30
PROVIDERS: ADMIT Internal Medicine; ATTEND Internal Medicine
PROC: 3E0333Z Introduction of Anti-inflammatory into Peripheral Vein, Percutaneous Approach (ICD-10-PCS; 2020-08-12)
PROC: XW033E5 Introduction of Remdesivir Anti-infective into Peripheral Vein, Percutaneous Approach, New Technology Group 5 (ICD-10-PCS; 2020-08-13)
PROC: 02HV33Z Insertion of Infusion Device into Superior Vena Cava, Percutaneous Approach (ICD-10-PCS; 2020-09-01)
PROC: B548ZZA Ultrasonography of Superior Vena Cava, Guidance (ICD-10-PCS; 2020-09-01)
PROC: 5A1955Z Respiratory Ventilation, Greater than 96 Consecutive Hours (ICD-10-PCS; principal; 2020-09-02)
PROC: 0BH18EZ Insertion of Endotracheal Airway into Trachea, Via Natural or Artificial Opening Endoscopic (ICD-10-PCS; 2020-09-02)
PROC: 03HY32Z Insertion of Monitoring Device into Upper Artery, Percutaneous Approach (ICD-10-PCS; 2020-09-03)
PROC: 4A133B1 Monitoring of Arterial Pressure, Peripheral, Percutaneous Approach (ICD-10-PCS; 2020-09-03)
PROC: 4A133J1 Monitoring of Arterial Pulse, Peripheral, Percutaneous Approach (ICD-10-PCS; 2020-09-03)
DX: A41.89 Other specified sepsis (principal); U07.1 COVID-19; R65.21 Severe sepsis with septic shock; J96.00 Acute respiratory failure, unspecified whether with hypoxia or hypercapnia; J12.82 Pneumonia due to coronavirus disease 2019; I50.33 Acute on chronic diastolic (congestive) heart failure; J69.0 Pneumonitis due to inhalation of food and vomit; K72.00 Acute and subacute hepatic failure without coma; E66.2 Morbid (severe) obesity with alveolar hypoventilation; Z68.42 Body mass index [BMI] 45.0-49.9, adult; E03.9 Hypothyroidism, unspecified; D70.9 Neutropenia, unspecified; E11.65 Type 2 diabetes mellitus with hyperglycemia; G47.33 Obstructive sleep apnea (adult) (pediatric); Z79.84 Long term (current) use of oral hypoglycemic drugs; J30.2 Other seasonal allergic rhinitis; Z83.3 Family history of diabetes mellitus; Z82.49 Family history of ischemic heart disease and other diseases of the circulatory system; T38.0X5A Adverse effect of glucocorticoids and synthetic analogues, initial encounter; E87.6 Hypokalemia; I11.0 Hypertensive heart disease with heart failure; F41.9 Anxiety disorder, unspecified
CPT/HCPCS: 36415; 36569; 36600; 71045; 71260; 74018; 80048; 80053; 80202; 81001; 82553; 82805; 82948; 83036; 83880; 84443; 84484; 85025; 85379; 87040; 87070; 87205; 93005; 93306; 93970; 94002; 94003; 94660; 96361; 96372; 99251; 99284; J0171; J0330; J0360; J0456; J0696; J1100; J1450; J1650; J1940; J2060; J2185; J2370; J2405; J2543; J2765; J3370; J7030; J7050; J7121; P9047; Q9967; U0002